=== PATIENT | female | born 1995 | race Caucasian/White ===

== ENCOUNTER 2024-03-28 08:41 | Emergency (ER) | payer MEDICAID ==
[~2024-03-28] VITALS: Ht 152.4 cm; Wt 42.8 kg
[2024-03-28 08:54] VITALS: BP 118/70; PULSE 127; RESP 18; TEMP 101.6; O2SAT 100
[2024-03-28 09:16] LABS: BILIRUBIN,URINE 1+ (NEGATIVE); BLOOD, URINE NEGATIVE (NEGATIVE); COLOR,URINE YELLOW (YELLOW); LEUKOCYTE ESTERASE ,URINE TRACE (NEGATIVE); NITRITE, URINE NEGATIVE (NEGATIVE); PROTEIN,URINE TRACE (NEGATIVE); UGLUCOSE NEGATIVE (NEGATIVE); UROBILINOGEN,URINE 0.2 EU/dL (0.2 - 1)
[2024-03-28 09:32] LABS: ICTOTEST NEGATIVE (NEGATIVE)
[2024-03-28 09:33] LABS: MUCUS,URINE 1+ /LPF (None Seen); SQUAMOUS EPITHELIAL CELL,UR 4-10 (MOD) /LPF (0-3 (FEW))
[2024-03-28 09:34] LABS: BACTERIA,URINE FEW /HPF (None Seen); RBC,URINE 0-5 /HPF (0-5); WBC,URINE 0-5 /HPF (0-5)
[2024-03-28 09:35] LABS: APPEARANCE,URINE SLIGHTLY HAZY (CLEAR)
[2024-03-28] MEDS: KETOROLAC 60 MG/2 ML VIAL IM ONE (10:08)
[2024-03-28 10:22] VITALS: BP 116/71; PULSE 124; RESP 16; TEMP 103.1; O2SAT 100
[2024-03-28] MEDS ORDERED: ONDA8TAB87 PO (10:24)
[2024-03-28] MEDS ORDERED: IBUP-1842 PO (10:24)
[2024-03-28] MEDS: NACL 0.9% 1,000 ML IV ONE (10:34)
[2024-03-28] MEDS: ACETAMINOPHEN EXTRA STRENGTH 500 MG TAB PO ONE (10:35)
[2024-03-29] MEDS ORDERED: BENZ-300 PO (18:23)
[2024-03-29] MEDS ORDERED: IBUP-2213 PO (18:23)
[2024-03-29] MEDS ORDERED: AMOX875T3 PO (18:23)
== END 2024-03-28 11:09 | disposition home or self-care (01) ==
LOC: MED 08:41
DX: R50.9 Fever, unspecified (principal); R10.9 Unspecified abdominal pain; R11.0 Nausea; J02.9 Acute pharyngitis, unspecified
CPT/HCPCS: 81001; 81025; 96360; 96372; 99283; J1885; J7030

== ENCOUNTER 2024-03-29 15:50 | Emergency (ER) | payer MEDICAID ==
[~2024-03-29] VITALS: Ht 152.4 cm; Wt 42.6 kg
[~2024-03-29 15:50] MED LIST: IBUP-1842 PO; ONDA8TAB87 PO
[2024-03-29 16:40] VITALS: BP 116/74; PULSE 132; RESP 20; TEMP 100.3; O2SAT 98
[2024-03-29 17:53] LABS: FLU A ANTIGEN negative (NEGATIVE); FLU B ANTIGEN NEGATIVE (NEGATIVE)
[2024-03-29] MEDS ORDERED: AMOX875T3 PO (18:23)
[2024-03-29] MEDS ORDERED: BENZ-300 PO (18:23)
[2024-03-29] MEDS ORDERED: IBUP-2213 PO (18:23)
[2024-03-29] MEDS: ACETAMINOPHEN EXTRA STRENGTH 500 MG TAB PO ONE (18:38)
[2024-03-29] MEDS: DEXAMETHASONE 10 MG/ML VIAL IM ONE (18:39)
== END 2024-03-29 19:00 | disposition home or self-care (01) ==
LOC: MED 15:50
DX: J02.0 Streptococcal pharyngitis (principal); Z20.822 Contact with and (suspected) exposure to COVID-19; Z79.899 Other long term (current) drug therapy
CPT/HCPCS: 87081; 87426; 87804; 96372; 99283; J1100